=== PATIENT | female | born 1990 | race American Indian/Alaskan Native ===

== ENCOUNTER 2021-08-31 00:34 | Emergency (ER) | payer MEDICAID ==
[2021-08-31 03:29] LABS: Basophils # (Auto) 0.1 K/mm3 (0.0-0.1); Basophils % (Auto) 0.7 % (0.0-1.8); Eosinophils # (Auto) 0.2 K/mm3 (0.0-0.4); Eosinophils % (Auto) 2.1 % (0.0-4.3); Hematocrit 31.2 % (30.3-42.9); Hemoglobin 10.8 gm/dl (10.1-14.3); Lymphocytes % (Auto) 26.3 % (13.4-35.0); Mean Corpuscular HGB Conc 35 % (30-34); Mean Corpuscular Volume 89 fl (79-97); Monocytes # (Auto) 0.4 K/mm3 (0.0-0.8); Monocytes % (Auto) 4.9 % (0.0-7.3); Platelet Count 311 K/mm3 (140-440); Red Blood Count 3.52 M/mm3 (3.65-5.03); Red Cell Distribution Width 14.2 % (13.2-15.2)
[2021-08-31 03:33] LABS: Bacteria,Urine 1+ /HPF (Negative); Bilirubin,Urine NEG (Negative); Blood,Urine LG (Negative); Color,Urine Yellow (Yellow); Mucus,Urine FEW /HPF; Protein,Urine <15 mg/dL mg/dL (Negative); Urobilinogen,Urine < 2.0 mg/dL (<2.0)
--- NOTE | 2021-08-31 04:26 | Ultrasound Report ---
ULTRASOUND OBSTETRIC INDICATION / CLINICAL INFORMATION: Vaginal bleeding. Clinical Gestational Age (GA) in weeks, days: 8 weeks 1 day TECHNIQUE: Transabdominal and Transvaginal. COMPARISON: None available. FINDINGS: GESTATIONAL SAC: Well-defined oval shape and intrauterine in location. Sac margin appears grossly int act. YOLK SAC: No significant abnormality. EMBRYO/FETUS: No significant abnormality. - Bryce-Rump Length = 2.26 cm = 9, 1 weeks, days. Gestational sac diameter 4.45 cm mean, 10 weeks 0 days - Heart Rate, beats per minute (if present) = 171 ADNEXA: Right ovary measures 3.1 x 1.7 x 3.1 cm and demonstrates no significant abnormality. Left ova ry measures 2.0 x 1.1 x 2.4 cm and demonstrates no significant abnormality. FREE FLUID: None. ADDITIONAL FINDINGS: None. IMPRESSION: 1. Single, living intrauterine with estimated sonographic age of 9 weeks 4 days Signer Name: Gian Yanez II, MD Signed: 08/31/2021 4:22 AM Workstation Name: [email or web address]
--- NOTE | 2021-08-31 04:26 | Ultrasound Report ---
ULTRASOUND OBSTETRIC INDICATION / CLINICAL INFORMATION: Vaginal bleeding. Clinical Gestational Age (GA) in weeks, days: 8 weeks 1 day TECHNIQUE: Transabdominal and Transvaginal. COMPARISON: None available. FINDINGS: GESTATIONAL SAC: Well-defined oval shape and intrauterine in location. Sac margin appears grossly int act. YOLK SAC: No significant abnormality. EMBRYO/FETUS: No significant abnormality. - Freeman-Rump Length = 2.26 cm = 9, 1 weeks, days. Gestational sac diameter 4.45 cm mean, 10 weeks 0 days - Heart Rate, beats per minute (if present) = 171 ADNEXA: Right ovary measures 3.1 x 1.7 x 3.1 cm and demonstrates no significant abnormality. Left ova ry measures 2.0 x 1.1 x 2.4 cm and demonstrates no significant abnormality. FREE FLUID: None. ADDITIONAL FINDINGS: None. IMPRESSION: 1. Single, living intrauterine with estimated sonographic age of 9 weeks 4 days Signer Name: Gian Yanez II, MD Signed: 08/31/2021 4:22 AM Workstation Name: [email or web address]
[2021-08-31 04:40] VITALS: BP 130/86
== END 2021-08-31 04:38 | disposition left against medical advice (07) ==
LOC: ED 00:34
DX: O20.9 Hemorrhage in early pregnancy, unspecified (principal); Z53.21 Procedure and treatment not carried out due to patient leaving prior to being seen by health care provider; Z3A.08 8 weeks gestation of pregnancy
CPT/HCPCS: 36415; 76801; 76817; 81001; 84702; 85025; 86900; 86901; 99284

== ENCOUNTER 2022-03-25 13:41 | Inpatient (IN) | payer BC, MEDICAID ==
[2022-03-25] MEDS ORDERED: MINERAL OIL 30 ML ORAL LIQD PO PRN (18:22)
[2022-03-25] MEDS ORDERED: ACETAMINOPHEN 325 MG TAB PO PRN (18:22)
[2022-03-25] MEDS ORDERED: METHYLERGONOVINE MALEATE 0.2 MG/ML VIAL IM PRN (18:22)
[2022-03-25] MEDS ORDERED: BUTORPHANOL 2 MG/1 ML INJ IV PRN ×2 (18:22)
[2022-03-25] MEDS ORDERED: ONDANSETRON 4 MG/2 ML INJ IV PRN (18:22)
[2022-03-25] MEDS ORDERED: OXYTOCIN 10 UNIT/1 ML INJ IM PRN (18:22)
[2022-03-25] MEDS ORDERED: LOPERAMIDE 2 MG CAP PO PRN (18:22)
[2022-03-25] MEDS ORDERED: ePHEDrine SULFATE 50 MG/1 ML INJ IV PRN (18:22)
[2022-03-25] MEDS ORDERED: CARBOPROST TROMETHAMINE 250 MCG/1 ML INJ IM PRN (18:22)
[2022-03-25] MEDS ORDERED: TERBUTALINE 1 MG/1 ML INJ SUB-Q PRN (18:22)
[2022-03-25] MEDS ORDERED: miSOPROStol 200 MCG TAB PR PRN (18:22)
--- NOTE | 2022-03-25 18:35 | History and Physical Report ---
History of Present Illness Date of examination: 03/25/22 Date of admission: Mar 27, 2022 Chief complaint: my water broke History of present illness: 32 y/o with care at [facility] presents to Labor and delivery with C/O gush of fluid in the office. Since arriving she has soaked multiple towels. Her contractions are increasing. GBS Positive. Past History Past Medical History: no pertinent history Past Surgical History: no surgical history Family/Genetic History: heart disease Social history: no significant social history - Obstetrical History Expected Date of Delivery: 04/02/22 Actual Gestation: 38 Week(s) 6 Day(s) : 3 Number of Living Children: 2 Medications and Allergies Allergies Allergy/AdvReac Type Severity Reaction Status Date / Time No Known Allergies Allergy Verified 12/04/15 02:50 Home Medications Medication Instructions Recorded Confirmed Last Taken Type No Known Home Medications [No 12/04/15 12/10/15 Unknown History Reported Home Medications] Review of Systems All systems: negative - Vital Signs Vital signs: Vital Signs Pulse BP Pulse Ox 81 139/78 98 03/25/22 14:12 03/25/22 14:12 03/25/22 14:12 Temp Pulse Resp BP Pulse Ox 98.4 F 87 139/78 100 03/25/22 14:15 03/25/22 18:17 03/25/22 14:12 03/25/22 18:17 - Physical Exam Breasts: Positive: deferred Cardiovascular: Regular rate Lungs: Positive: Clear to auscultation Abdomen: Positive: soft Genitourinary (Female): Positive: normal external genitalia Vulva: both: normal Anus/Rectum: Positive: normal perianal skin Extremities: Positive: normal Deep Tendon Reflex Grade: Normal +2 - Obstetrical FHR: category 1 Uterine Contraction Monitor Mode: External Cervical Dilatation: 1 Cervical Effacement Percentage: 50 station: -2 Uterine Contraction Pattern: Irregular Uterine Contraction Intensity: Mild Results All other labs normal. Assessment and Plan A: 38.6 weeks with SROM P: Augmentation of labor Expect
[2022-03-25 18:54] LABS: Hematocrit 27.6 % (30.3-42.9); Mean Corpuscular HGB Conc 33 % (30-34); Mean Corpuscular Volume 80 fl (79-97); Platelet Count 255 K/mm3 (140-440); Red Blood Count 3.48 M/mm3 (3.65-5.03); Red Cell Distribution Width 17.1 % (13.2-15.2)
[2022-03-25] MEDS ORDERED: OXYTOCIN DRIP 30 UNITS/500 ML BAG IV SCH ×2 (19:00)
[2022-03-25] MEDS ORDERED: LIDOCAINE (2%) 20 MG/1 ML VIAL 20 ML MDV INFILTRATI ONE (19:00)
--- NOTE | 2022-03-25 19:47 | Ultrasound Report ---
Limited OB ultrasound INDICATION: ANTHONY FINDINGS: Single live intrauterine with an ANTHONY measuring 12.6 cm. heart rate 1 29 bpm . IMPRESSION: ANTHONY measures 12.6 cm Signer Name: Sven Sue MD Signed: 03/25/2022 7:42 PM Workstation Name: [email or web address]
[2022-03-25] MEDS ORDERED: AMPICILLIN/NS 2 GM/100 ML 2 GM/100 ML BAG IV ONE (20:00)
[2022-03-25] MEDS ORDERED: PENICILLIN G POTASSIUM 5 MIL.UNITS in SODIUM CHLORIDE 0.9% 50 ML IV ONE (22:00)
[2022-03-25] MEDS: LACTATED RINGERS 1,000 ML IV SCH (22:04)
--- NOTE | 2022-03-25 22:31 | Ultrasound Report ---
ULTRASOUND OBSTETRIC INDICATION / CLINICAL INFORMATION: EFW, PL[facility]ENT[facility] LOCATION. - Clinical Gestational Age (GA) in weeks, days: 38, 6 TECHNIQUE: Transabdominal. COMPARISON: None available. FINDINGS: Single intrauterine . Biparietal Diameter = 9.4 cm = 38 weeks, days Head Circumference = 34 cm = 39 weeks, days Abdominal Circumference = 33.6 cm = 37 weeks, days Femur Length = 7.7 cm = 37 weeks, 4days Average Ultrasound Age (AUA) = 39 weeks, 1ays Heart Rate: 142 beats per minute. Estimated Weight in grams (if calculated): 3408 Estimated Weight Growth Percentile (if calculated): Position: cephalic. Cervix: closed. Length in cm (if measured): Placenta: posterior and fundal and free of the os. Amniotic Fluid Volume: normal Amniotic Fluid Index (ANTHONY) in cm (if calculated): . Maternal Adnexa: No significant abnormality. IMPRESSION: 1. Single, living intrauterine with estimated sonographic age of 38 weeks, 3 days. 2. No significant sonographic abnormality. Signer Name: Charly Villarreal MD Signed: 03/25/2022 10:27 PM Workstation Name: [email or web address]
[2022-03-25] MEDS: miSOPROStol 25 MCG TAB PO SCH (22:57)
[2022-03-25] MEDS ORDERED: AMPICILLIN/NS 1 GM/50 ML 1 GM/50 ML BAG IV SCH (23:00)
[2022-03-26] MEDS: BUTORPHANOL 2 MG/1 ML INJ IV PRN ×2 (01:53→04:34)
[2022-03-26] MEDS: miSOPROStol 25 MCG TAB PO SCH ×2 (02:08→06:42)
[2022-03-26] MEDS ORDERED: ePHEDrine SULFATE 50 MG/1 ML INJ ONE ×2 (02:30→06:04)
[2022-03-26] MEDS: PENICILLIN G POTASSIUM 2.5 MIL.UNITS in SODIUM CHLORIDE 0.9% 50 ML IV SCH ×3 (03:35→11:28)
[2022-03-26] MEDS: LACTATED RINGERS 1,000 ML IV SCH ×2 (04:51→06:02)
[2022-03-26] MEDS ORDERED: ePHEDrine SULFATE 50 MG/1 ML INJ IV PRN (06:49)
[2022-03-26] MEDS ORDERED: fentaNYL-BUPIV 2 MCG/ML-0.125% 200 MCG/100 ML BAG EPIDURAL SCH (06:49)
[2022-03-26] MEDS ORDERED: NALOXONE 0.4 MG/1 ML INJ IV PRN (06:49)
--- NOTE | 2022-03-26 06:50 | Anesthesia Consultation ---
Anesthesia Consult and Med Hx Date of service: 03/26/22 - Airway Anesthetic Teeth Evaluation: Good ROM Head & Neck: Adequate Mental/Hyoid Distance: Adequate Mallampati Class: Class II Intubation Access Assessment: Probably Good - Pulmonary Exam CTA: Yes - Cardiac Exam Cardiac Exam: RRR - Pre-Operative Health Status ASA Pre-Surgery Classification: ASA2 Proposed Anesthetic Plan: Epidural - Pulmonary Hx Smoking: No Hx Asthma: Yes Hx Respiratory Symptoms: No SOB: No COPD: No Home Oxygen Therapy: No Hx Pneumonia: No Hx Sleep Apnea: No - Cardiovascular System Hx Hypertension: No Hx Coronary Artery Disease: No Hx Heart Attack/AMI: No Hx Angina: No Hx Percutaneous Transluminal Coronary Angioplasty (PTCA): No Hx Cardia Arrhythmia: No Hx Pacemaker: No Hx Internal Defibrillator: No Hx Valvular Heart Disease: No Hx Heart Murmur: No Hx Peripheral Vascular Disease: No - Central Nervous System Hx Neuromuscular Disorder: No Hx Seizures: No CVA: No Hx Back Pain: No Hx Psychiatric Problems: No - Gastrointestinal Hx Ulcer: No Hx Gastroesophageal Reflux Disease: No - Endocrine Hx Renal Disease: No Hx End Stage Renal Disease: No Hx Cirrhosis: No Hx Liver Disease: No Hx Insulin Dependent Diabetes: No Hx Non-Insulin Dependent Diabetes: No Hx Thyroid Disease: No Hx Hypothyroidism: No Hx Hyperthyroidism: No - Hematic Hx Anemia: No Hx Sickle Cell Disease: No - Other Systems Hx Alcohol Use: No Hx Substance Use: No Hx Cancer: No Hx Obesity: Yes
--- NOTE | 2022-03-26 06:51 | Anesthesia Day of Surgery ---
Anesthesia Day of Surgery - Day of Surgery Patient Examined: Yes Patient H&P Reviewed: Yes Patient is NPO: Yes Beta Blockers: No Cardiac Clearance: No Pulmonary Clearance: No Danis's Test: N/A
--- NOTE | 2022-03-26 06:51 | Progress Note ---
Labor Epidural - Labor Epidural Start Time: 06:28 Stop Time: 06:35 Performed by:: HERMAN HARVEY Procedure: Epidural Requested for Labor Pain. H&P and PT Chart reviewed and consent obtained. Time out performed and the procedure was explained, all questions answered. Patient was placed in a sitting position with monitors applied. The PTs back was prepped and draped in usual sterile fashion. The Skin was localized with 3 mL of 1% lidocaine at L3-L4. A 17-gauge Touhy epidural needle was advanced to XU with saline at 7 cm and no blood/CSF was noted via epidural needle. Epidural catheter was advanced to 12 cm. There was negative aspiration for blood and CSF in the catheter and negative response to a test dose of 3 ml 1.5% lidocaine w/ Epi and a sterile dressing was applied Patient tolerated the procedure well and there were no immediate complications noted.
--- NOTE | 2022-03-26 06:53 | Event Note ---
Date: 03/26/22 This patient is 39 weeks and was admitted for induction of labor secondary to a high clinical suspicion for premature rupture of membranes at term (Term PROM). ROM plus test was (-) x2. OB Ultrasound Limited= SLIUP. Vertex. EFW= 3408 g (50th %-ile). ANTHONY= 12.6 cm. After preinduction cervical ripening with oral Cytotec and Cook's catheter to traction, SVE= 5/50%/-3. Amniotic membrane was palpated. Subsequently, membranes were AROM'ed with clear fluid. Pitocin per protocol ordered.
[2022-03-26] MEDS ORDERED: OXYTOCIN DRIP 30 UNITS/500 ML BAG IV SCH (07:00)
[2022-03-26] MEDS ORDERED: LIDOCAINE (2%) 20 MG/1 ML VIAL 20 ML MDV INFILTRATI ONE (13:10)
[2022-03-26] MEDS ORDERED: MINERAL OIL 30 ML ORAL LIQD PO PRN (13:10)
[2022-03-26] MEDS ORDERED: LIDOCAINE MPF (2%) 20 MG/1 ML VIAL 5 ML ONE (13:41)
[2022-03-26] MEDS ORDERED: BUPIVACAINE/PF (0.25%) 2.5 MG/ML 10 ML VIAL INFILTRATI ONE (13:41)
[2022-03-26] MEDS ORDERED: miSOPROStol 200 MCG TAB ONE (14:33)
[2022-03-26] MEDS ORDERED: miSOPROStol 200 MCG TAB PR SCH (15:00)
[2022-03-26] MEDS ORDERED: diphenhydrAMINE 25 MG CAP PO PRN (15:17)
[2022-03-26] MEDS ORDERED: WITCH HAZEL/ GLYCERIN PAD TP PRN (15:17)
[2022-03-26] MEDS ORDERED: BENZOCAINE/MENTHOL 20/0.5% TOP SPRAY 56 GM TP PRN (15:17)
[2022-03-26] MEDS ORDERED: LANOLIN/ZINC/DIMETHICONE (LANSINOH) 7 GM TP PRN (15:17)
[2022-03-26] MEDS ORDERED: PROMETHAZINE 25 MG TAB PO PRN (15:17)
--- NOTE | 2022-03-26 15:41 | Procedure Note ---
OB Delivery Note - Delivery Date of Delivery: 03/26/22 (1420) Surgeon: AMARA HOGAN Estimated blood loss: 200cc - Vaginal Delivery presentation: vertex Delivery position: OA Delivery induction: misoprostol Delivery augmentation: rupture of membranes, pitocin Delivery monitor: external FHT, internal uterine Route of delivery: Delivery placenta: manual, uterine exploration Delivery cord: 3 umbilical vessels Episiotomy: none Delivery laceration: 1st degree Delivery repair: vicryl Anesthesia: epidural Delivery comments: of a live 6'15 female over a 1st degree vaginal laceration under epidural anesthesia with Apgars of 8 and 9 at 1420 on 03/26/2022. Infant directly to maternal abd/chest, skin to skin contact. Delayed cord clamping and cutting; Cord cut by the Father of the Baby. Manual removal of placenta due to avulsed cord at 1428. Two uterine sweeps to remove complete placenta; upon uterine exploration, uterus palpates empty. Fundus is firm and midline located 5 below the U. Lochia is scant. 1000mcg of Cytotec placed per rectum. Placenta to pathology. 1st degree vaginal laceration repaired with 2-0 Vicryl on a SH. GBS +; treated x4. - A at 1 minute: 8 at 5 minutes: 9 Gender: Female (6'15)
[2022-03-26] MEDS: IBUPROFEN 800 MG TAB PO SCH (16:28)
[2022-03-26] MEDS ORDERED: medroxyPROGESTERone ACETATE 150 MG/ML SYRINGE IM ONE (17:00)
[2022-03-26] MEDS: HYDROcodone/ACETAMINOPHEN 5-325 MG TAB PO PRN (20:49)
[2022-03-27] MEDS: HYDROcodone/ACETAMINOPHEN 5-325 MG TAB PO PRN ×3 (05:17→22:46)
[2022-03-27 05:21] LABS: Hematocrit 26.6 % (30.3-42.9); Hemoglobin 8.6 gm/dl (10.1-14.3)
--- NOTE | 2022-03-27 06:01 | Post Anesthesia Evaluation ---
- Post Anesthesia Evaluation Patient Participated: No Airway Patent: Yes Stable Respiratory Function: Yes Nausea/Vomiting: No Temp > 96.8F: Yes Pain Manageable: Yes Adequeate Hydration: Yes Anesthesia Complications: No Block Receding Appropriately: Yes Patient on Ventilator: No
[2022-03-27] MEDS: PRENATAL VIT27-FE FUMARATE-FOLIC ACID VIT TAB PO SCH (09:44)
[2022-03-27] MEDS ORDERED: IRON DEXTRAN COMPLEX 100 MG/2 ML INJ IM NR (10:30)
[2022-03-27] MEDS ORDERED: IRON DEXTRAN COMPLEX 100 MG/2 ML INJ IM ONE (11:43)
[2022-03-27] MEDS ORDERED: medroxyPROGESTERone ACETATE 150 MG/ML SYRINGE IM ONE (12:00)
--- NOTE | 2022-03-27 12:48 | Progress Note ---
Assessment and Plan A: PP Day #1 Asymptomatic Anemia P: Follow Routine Orders Infed 100mg IM x 1 dose Depo Provera 150mg IM x 1 dose prior to discharge D/C home today per patient request RTO in 6 Weeks Subjective - Subjective Date of service: 03/27/22 Patient reports: appetite normal, voiding normally, pain well controlled, flatus, ambulating normally [place]: doing well, bottle feeding Objective - Vital Signs Latest vital signs: Vital Signs Temp Pulse Resp BP BP Pulse Ox Pulse Ox 03/27/22 08:00 98.7 F 69 16 108/66 100 98 03/27/22 06:17 18 03/27/22 05:17 20 03/27/22 02:24 98.1 F 79 18 107/62 98 03/27/22 01:00 18 03/27/22 00:00 20 03/26/22 21:49 18 03/26/22 21:37 99.0 F 87 20 121/72 96 03/26/22 20:49 20 03/26/22 20:00 100 03/26/22 17:47 99 03/26/22 17:22 98.9 F 89 16 115/70 97 03/26/22 16:56 99.1 F 03/26/22 16:55 86 109/66 03/26/22 16:12 97 H 113/69 03/26/22 15:52 96 H 128/79 03/26/22 15:29 103 H 99 03/26/22 15:24 104 H 100 03/26/22 15:19 104 H 100 03/26/22 15:14 92 H 99 03/26/22 15:12 99 H 119/70 03/26/22 15:09 96 H 99 03/26/22 15:08 99.9 F H 03/26/22 15:04 111 H 99 03/26/22 14:59 103 H 100 03/26/22 14:54 103 H 100 03/26/22 14:49 119 H 100 03/26/22 14:44 116 H 99 03/26/22 14:39 116 H 100 03/26/22 14:34 109 H 99 03/26/22 14:29 120 H 99 03/26/22 14:25 98.9 F 03/26/22 14:24 108 H 100 09/28/22 14:19 119 H 99 03/26/22 14:14 115 H 99 03/26/22 14:09 105 H 100 03/26/22 14:04 97 H 100 03/26/22 13:59 94 H 100 03/26/22 13:54 90 100 03/26/22 13:49 102 H 100 03/26/22 13:44 83 100 03/26/22 13:42 100 H 104/60 03/26/22 13:39 100 H 99 03/26/22 13:34 89 100 03/26/22 13:29 91 H 99 03/26/22 13:24 115 H 100 03/26/22 13:19 87 99 03/26/22 13:14 86 99 03/26/22 13:13 85 119/62 03/26/22 13:09 83 100 03/26/22 13:04 87 98 03/26/22 12:59 80 99 03/26/22 12:54 77 98 03/26/22 12:49 75 98 Intake and Output 03/26/22 03/27/22 03/27/22 22:59 06:59 14:59 Intake Total 360 420 Output Total 650 250 Balance -290 170 Intake: Intake, Free Water 360 420 Output: Urine 650 250 Void 650 250 Other: Total, Output Amount 650 250 # Voids Void 1 1 - Exam Breasts: Present: normal Cardiovascular: Present: Regular rate Lungs: Present: Clear to auscultation, Normal air movement Abdomen: Present: normal appearance, soft, normal bowel sounds Uterus: Present: normal, firm, fundal height below umbilicus Extremities: Present: normal - Labs Labs: Abnormal lab results 03/27/22 Range/Units 03:28 Hgb 8.6 L (10.1-14.3) gm/dl Hct 26.6 L (30.3-42.9) %
--- NOTE | 2022-03-27 12:49 | Discharge Summary ---
Providers - Providers Date of Admission: 03/26/22 13:10 Date of discharge: 03/27/22 Attending physician: CARLOS LEOS MD Primary care physician: CARLOS LEOS MD Hospitalization Reason for admission: rupture of membranes Delivery: Episiotomy: none Laceration: 1st degree Other procedures: none complications: none Discharge diagnosis: IUP at term delivered [place] baby: female Condition at discharge: Good Disposition: 01 HOME / SELF CARE / HOMELESS Plan - Provider Discharge Summary Activity: routine, no sex for 6 weeks, no heavy lifting 4 weeks, no strenuous exercise Diet: routine Instructions: routine Additional instructions: [] Smoking cessation referral if applicable(refer to patient education folder for contact #) [] Refer to [facility]'s [facility] Booklet Call your doctor immediately for: * Fever > 100.5 * Heavy vaginal bleeding ( >1 pad per hour) * Severe persistent headache * Shortness of breath * Reddened, hot, painful area to leg or breast * Drainage or odor from incision. * Keep incision clean and dry at all times and follow doctor's instructions regarding bathing/showering - Follow up plan Follow up: CARLOS LEOS MD [Primary Care Provider] - 6 Weeks
[2022-03-27] MEDS: IBUPROFEN 800 MG TAB PO SCH ×3 (18:43→22:00)
[2022-03-28] MEDS: IBUPROFEN 800 MG TAB PO SCH ×2 (03:13→09:42)
[2022-03-28] MEDS: PRENATAL VIT27-FE FUMARATE-FOLIC ACID VIT TAB PO SCH (09:42)
[2022-03-28 13:41] VITALS: BP 116/69
== END 2022-03-28 13:58 | disposition home or self-care (01) | DRG 807 ==
LOC: TRG 13:41 → APU 13:43 → TRG 18:22 → LD 18:22 → OBSVTOIN 03-26 13:10 → OB 03-26 17:13
PROVIDERS: ADMIT Obstetrics & Gynecology Gynecology; ATTEND Obstetrics & Gynecology Gynecology
PROC: 10E0XZZ Delivery of Products of Conception, External Approach (ICD-10-PCS; principal; 2022-03-26)
PROC: 3E0S3BZ Introduction of Anesthetic Agent into Epidural Space, Percutaneous Approach (ICD-10-PCS; 2022-03-26)
PROC: 0HQ9XZZ Repair Perineum Skin, External Approach (ICD-10-PCS; 2022-03-26)
PROC: 00HU33Z Insertion of Infusion Device into Spinal Canal, Percutaneous Approach (ICD-10-PCS; 2022-03-26)
PROC: 10907ZC Drainage of Amniotic Fluid, Therapeutic from Products of Conception, Via Natural or Artificial Opening (ICD-10-PCS; 2022-03-26)
DX: O99.824 Streptococcus B carrier state complicating childbirth (principal); Z37.0 Single live birth; O70.0 First degree perineal laceration during delivery; O42.92 Full-term premature rupture of membranes, unspecified as to length of time between rupture and onset of labor; Z20.822 Contact with and (suspected) exposure to COVID-19; O99.02 Anemia complicating childbirth; Z3A.38 38 weeks gestation of pregnancy
CPT/HCPCS: 36415; 59025; 76815; 76816; 83036; 84112; 85014; 85018; 85027; 86850; 86900; 86901; 88307; G0378; J3490; J0595; J1050; J1750; J2540; J2590; J7120; U0003